=== PATIENT | female | born 1950 | race African-American/Black ===

== ENCOUNTER 2017-12-16 14:29 | Emergency (ER) | payer OTHER ==
--- NOTE | 2017-12-16 15:04 | ER ---
Nurse's Notes [facility] Name: Jemal Velez Age: 67 yrs Sex: Female : 1950 Arrival Date: 12/16/2017 Time: 14:33 Bed 23 Private MD: Abe Morris Diagnosis: Rash and other nonspecific skin eruption Presentation: 12/16 14:46 Presenting complaint: Patient states: "I have had shingles before and I think I have lk1 them again. I was in the hospital on the of last month and they put stickers on me. It started after that.". Transition of care: patient was not received from another setting of care. Onset of symptoms was November 30, 2017. Care prior to arrival: None. 14:46 Method Of Arrival: Ambulatory lk1 14:46 Acuity: JEFF 4 lk1 Triage Assessment: 14:48 General: Appears in no apparent distress. Behavior is calm, cooperative, appropriate lk1 for age. Pain: Denies pain. Historical: - Allergies: 14:48 Codeine; lk1 - PMHx: 14:48 Hypertension; shingles; lk1 - PSHx: 14:48 Hysterectomy; lk1 - Immunization history:: Adult Immunizations up to date. - Social history:: Smoking status: Patient uses tobacco products, denies chronic smoking, but will smoke occasionally. Screenin:00 Abuse screen: Denies threats or abuse. Nutritional screening: No deficits noted. tl3 Tuberculosis screening: No symptoms or risk factors identified. Fall Risk None identified. Assessment: 15:00 General: Appears uncomfortable, well groomed, well developed, well nourished, Behavior tl3 is calm, cooperative, appropriate for age. Pain: Complains of pain in chest, derm related Pain currently is 9 out of 10 on a pain scale. Neuro: Level of Consciousness is awake, alert, obeys commands, Oriented to person, place, time, situation, Appropriate for age. Cardiovascular: Heart tones S1 S2 present. Respiratory: Airway is patent Trachea midline Respiratory effort is even, unlabored, Breath sounds are clear bilaterally. GI: No signs and/or symptoms were reported involving the gastrointestinal system. : No signs and/or symptoms were reported regarding the genitourinary system. EENT: No signs and/or symptoms were reported regarding the EENT system. Derm: Rash noted that is itchy, painful. Musculoskeletal: No signs and/or symptoms reported regarding the musculoskeletal system. Vital Signs: 14:48 BP 217 / 96; Pulse 55; Resp 16; Temp 97.9(O); Pulse Ox 99% on R/A; Weight 116.12 kg lk1 (R); Height 5 ft. 3 in. (160.02 cm) (R); Pain 0/10; 14:48 Body Mass Index 45.35 (116.12 kg, 160.02 cm) lk1 ED Course: 14:33 Patient arrived in ED. mr 14:34 Abe Morris MD is Private Physician. mr 14:47 Triage completed. lk1 14:50 Arm band placed on right wrist. lk1 14:57 [facility]. snw 14:57 Shar Cisneros MD is Attending Physician. snw 15:00 No apparent distress. tl3 15:00 Patient has correct armband on for positive identification. Bed in low position. Call tl3 light in reach. 15:00 No provider procedures requiring assistance completed. Patient did not have IV access tl3 during this emergency room visit. 15:03 Abe Morris MD is Referral Physician. snw 15:05 Tyra Ely, JOSUÉ is Primary Nurse. tl3 Administered Medications: 15:15 Drug: fentaNYL (PF) 75 mcg Route: IM; Site: right gluteus; tl3 16:01 Follow up: Response: No adverse reaction; Pain is decreased tl3 15:36 Drug: Silvadene Cream 1 % 1 application Route: Topical; Site: affected area; tl3 16:01 Follow up: Response: No adverse reaction tl3 15:37 Drug: cloNIDine 0.1 mg Route: PO; tl3 16:01 Follow up: Response: No adverse reaction; Blood pressure is lowered tl3 Outcome: 15:03 Discharge ordered by . snw 16:00 Patient left the ED. tl3 16:01 Discharged to home ambulatory. tl3 16:01 Condition: good 16:01 Discharge instructions given to patient, family, Instructed on discharge instructions, follow up and referral plans. medication usage, Demonstrated understanding of instructions, follow-up care, medications, Prescriptions given X 2. Signatures: Bobbi Bonner FNP-C FNP-Csnw Jessica Pruett mr Carmen Weiss, RN RN lk1 Tyra Ely, RN RN tl3
--- NOTE | 2017-12-16 15:04 | EDPHYS ---
Physician Documentation [facility] Name: Jemal Velez Age: 67 yrs Sex: Female : 1950 Arrival Date: 12/16/2017 Time: 14:33 Bed 23 Private MD: Abe Morris ED Physician Shar Cisneros HPI: 12/16 15:08 This 67 yrs old Black Female presents to ER via Ambulatory with complaints of Shingles. snw 15:08 Onset: The symptoms/episode began/occurred suddenly, 1 week(s) ago, and became snw persistent. Associated signs and symptoms: Pertinent positives: itching, burning, tender. Modifying factors: the patient symptoms are aggravated by scratching. The patient has experienced a previous episode. appt with PCP on 12/24/17. Historical: - Allergies: 14:48 Codeine; lk1 - PMHx: 14:48 Hypertension; shingles; lk1 - PSHx: 14:48 Hysterectomy; lk1 - Immunization history:: Adult Immunizations up to date. - Social history:: Smoking status: Patient uses tobacco products, denies chronic smoking, but will smoke occasionally. ROS: 15:07 Constitutional: Negative for fever, chills, and weight loss, Eyes: Negative for injury, snw pain, redness, and discharge, ENT: Negative for injury, pain, and discharge, Neck: Negative for injury, pain, and swelling, Cardiovascular: Negative for chest pain, palpitations, and edema, Respiratory: Negative for shortness of breath, cough, wheezing, and pleuritic chest pain, Abdomen/GI: Negative for abdominal pain, nausea, vomiting, diarrhea, and constipation, Back: Negative for injury and pain, : Negative for injury, bleeding, discharge, and swelling, MS/Extremity: Negative for injury and deformity, Neuro: Negative for headache, weakness, numbness, tingling, and seizure. 15:07 Skin: Positive for rash, itching, burning, tender. Exam: 15:05 Constitutional: This is a well developed, well nourished patient who is awake, alert, snw and in no acute distress. Head/Face: Normocephalic, atraumatic. Eyes: Pupils equal round and reactive to light, extra-ocular motions intact. Lids and lashes normal. Conjunctiva and sclera are non-icteric and not injected. Cornea within normal limits. Periorbital areas with no swelling, redness, or edema. ENT: Nares patent. No nasal discharge, no septal abnormalities noted. Tympanic membranes are normal and external auditory canals are clear. Oropharynx with no redness, swelling, or masses, exudates, or evidence of obstruction, uvula midline. Mucous membranes moist. Neck: Trachea midline, no thyromegaly or masses palpated, and no cervical lymphadenopathy. Supple, full range of motion without nuchal rigidity, or vertebral point tenderness. No Meningismus. Chest/axilla: Normal chest wall appearance and motion. Nontender with no deformity. No lesions are appreciated. Cardiovascular: Regular rate and rhythm with a normal S1 and S2. No gallops, + (stable) murmurs, no rubs. Normal PMI, no JVD. No pulse deficits. Respiratory: Lungs have equal breath sounds bilaterally, clear to auscultation and percussion. No rales, rhonchi or wheezes noted. No increased work of breathing, no retractions or nasal flaring. Abdomen/GI: Soft, non-tender, with normal bowel sounds. No distension or tympany. No guarding or rebound. No evidence of tenderness throughout. Back: No spinal tenderness. No costovertebral tenderness. Full range of motion. MS/ Extremity: Pulses equal, no cyanosis. Neurovascular intact. Full, normal range of motion. Neuro: Awake and alert, GCS 15, oriented to person, place, time, and situation. Cranial nerves II-XII grossly intact. Motor strength 5/5 in all extremities. Sensory grossly intact. Cerebellar exam normal. Normal gait. Psych: Awake, alert, with orientation to person, place and time. Behavior, mood, and affect are within normal limits. 15:05 Skin: Appearance: normal except for affected area, rash can be described as erythematous, peeling, irritated skin, appears more burn like to central chest and under bilateral breasts. Vital Signs: 14:48 BP 217 / 96; Pulse 55; Resp 16; Temp 97.9(O); Pulse Ox 99% on R/A; Weight 116.12 kg lk1 (R); Height 5 ft. 3 in. (160.02 cm) (R); Pain 0/10; 14:48 Body Mass Index 45.35 (116.12 kg, 160.02 cm) lk1 MDM: 14:57 Patient medically screened. snw 15:07 Data reviewed: vital signs, nurses notes. Data interpreted: Pulse oximetry: on room air snw is 99 %. Interpretation: normal. Counseling: I had a detailed discussion with the patient and/or guardian regarding: the historical points, exam findings, and any diagnostic results supporting the discharge/admit diagnosis, the presence of at least one elevated blood pressure reading (>120/80) during this emergency department visit, the need for outpatient follow up, to return to the emergency department if symptoms worsen or persist or if there are any questions or concerns that arise at home. Special discussion: I have referred the patient to see his PCP for further evaluation of high blood pressure. Based on the history and exam findings, there is no indication for further emergent testing or inpatient evaluation. I discussed with the patient/guardian the need to see the primary care provider for further evaluation of the symptoms. Administered Medications: 15:15 Drug: fentaNYL (PF) 75 mcg Route: IM; Site: right gluteus; tl3 16:01 Follow up: Response: No adverse reaction; Pain is decreased tl3 15:36 Drug: Silvadene Cream 1 % 1 application Route: Topical; Site: affected area; tl3 16:01 Follow up: Response: No adverse reaction tl3 15:37 Drug: cloNIDine 0.1 mg Route: PO; tl3 16:01 Follow up: Response: No adverse reaction; Blood pressure is lowered tl3 Disposition: 12/17 07:31 Co-signature as Attending Physician, Shar Cisneros MD I agree with the assessment and chris plan of care. Disposition: 12/16/17 15:03 Discharged to Home. Impression: Rash and other nonspecific skin eruption. - Condition is Stable. - Discharge Instructions: Hypertension, Rash. - Prescriptions for Silvadene 1 % Topical Cream - Apply to affected area 1 application by TOPICAL route every 12 hours; 50 gram. cetirizine 1 mg/mL Oral Solution - take 5 milliliter by ORAL route once daily; 105 milliliter. - Medication Reconciliation Form, Thank You Letter, Antibiotic Education, Prescription Opioid Use form. - Follow up: Abe Morris MD; When: 1 week; Reason: Recheck today's complaints, Continuance of care, Re-evaluation by your physician. Follow up: Emergency Department; When: As needed; Reason: Worsening of condition. Signatures: Shar Cisneros MD MD cha Therrien, Shelly, HUNTER-C TIE SAWYER-Carmen Quintanilla, RN RN lk1 Tyra Ely RN RN tl3
[2017-12-16] MEDS ORDERED: FENTANYL CITR 100 MCG/2 ML ONE (15:32)
[2017-12-16] MEDS ORDERED: SILVER SULFADIAZINE 1% 25 GM TOP ONE (15:32)
[2017-12-16] MEDS ORDERED: cloNIDine HCl 0.1 MG TAB ONE (15:32)
== END 2017-12-16 16:00 | disposition home or self-care (01) ==
LOC: ER 14:29
DX: R21 Rash and other nonspecific skin eruption (principal); I10 Essential (primary) hypertension; Z88.5 Allergy status to narcotic agent; Z72.0 Tobacco use
CPT/HCPCS: 96372; 99283; J3010

== ENCOUNTER 2020-11-15 13:44 | Emergency (ER) | payer OTHER ==
--- OUTSIDE RECORDS SUMMARY | 2020-11-15 13:46 | XMS REPORT | Continuity of Care Document ---
:1950 Author Organization [facility] t Address [facility] [place] [address] Care Team Providers Name Role Phone Rausch Attending Clinician Problems This patient has no known problems. Allergies, Adverse Reactions, Alerts This patient has no known allergies or adverse reactions. Medications This patient has no known medications. Procedures This patient has no known procedures. Encounters Start End Encounter Admission Attending Care Care Encounter Source Date/Time Date/Time Type Type Clinicians Facility Department ID 2020-08-17 2020-08-17 Emergency Singer [facility] [id number] 10:45:00 11:12:00 Michael Delcid [id number] [place] [id number] [place] [id number] Results This patient has no known results.
[2020-11-15 14:25] LABS: Absolute Lymphocytes (CBC) 2.6 K/uL (0.7-4.9); Hematocrit 44.7 % (36.0-45.0); Lymphocytes % 24.1 % (15.3-44.8); MPV 9.8 fL (7.6-11.3); RBC Red Blood Cell Count 5.25 M/uL (3.86-4.86)
[2020-11-15] MEDS ORDERED: MAGNES/ALUMIN/SIMET 30ML UCUP ONE (14:29)
[2020-11-15] MEDS ORDERED: ASPIRIN 81 MG CHEWABLE TABLET ONE (14:29)
[2020-11-15] MEDS ORDERED: ONDANSETRON 4 MG/2 ML VIAL ONE (14:29)
[2020-11-15] MEDS ORDERED: FENTANYL CITR 100 MCG/2 ML ONE (14:29)
[2020-11-15] MEDS ORDERED: LIDOCAINE VISCOUS 2% SOLN 15 ML UDC ONE (14:30)
--- NOTE | 2020-11-15 14:42 | RAD REPORT ---
EXAM DESCRIPTION: RAD - Chest Single View - 11/15/2020 2:36 pm CLINICAL HISTORY: CHEST PAIN Chest pain. COMPARISON: Chest Single View dated 11/29/2017 FINDINGS: Portable technique limits examination quality. The lungs are grossly clear. The heart is normal in size. No displaced fractures. IMPRESSION: No acute intrathoracic process suspected.
[2020-11-15 15:09] LABS: ALT/SGPT 18 U/L (12-78); AST/SGOT 16 U/L (15-37); Albumin 3.9 g/dL (3.4-5.0); Alkaline Phosphatase 116 U/L (45-117); BUN Blood Urea Nitrogen 21 mg/dL (7-18); Bicarbonate 24 mmol/L (21-32); Bilirubin Direct 0.2 mg/dL (0-0.2); Bilirubin Total 0.9 mg/dL (0.2-1.0); Glucose Level 111 mg/dL (74-106); Magnesium 2.7 mg/dL (1.8-2.4); NT PRO-BNP 891 pg/mL (<125); Potassium 4.5 mmol/L (3.5-5.1); Protein, Total 8.4 g/dL (6.4-8.2); Sodium Level 136 mmol/L (136-145); Troponin (Emerg Dept Use Only) < 0.02 ng/mL (0.0-0.045)
--- NOTE | 2020-11-15 15:53 | RAD REPORT ---
EXAM DESCRIPTION: US - Abdomen Exam Limited - 11/15/2020 3:46 pm CLINICAL HISTORY: r/o gb;Abd pain Abdominal pain COMPARISON: No comparisons FINDINGS: The gallbladder demonstrates no gallstones. No pericholecystic fluid or gallbladder wall t hickening. The common bile duct is normal measuring 4 mm. The liver demonstrates no findings of intrahepatic biliary dilatation. IMPRESSION: Unremarkable examination.
--- NOTE | 2020-11-15 15:58 | EDPHYS ---
Physician Documentation [facility] Name: Jemal Velez Age: 70 yrs Sex: Female : 1950 Arrival Date: 11/15/2020 Time: 13:45 Bed 8 Private MD: Abe Morris ED Physician Gio Ruvalcaba HPI: 11/15 15:53 This 70 yrs old Black Female presents to ER via Wheelchair with complaints of jr8 epigastric pain. 15:54 The patient presents with abdominal pain in the epigastric area. Onset: The jr8 symptoms/episode began/occurred acutely, 3 day(s) ago, and became worse. The symptoms do not radiate. Associated signs and symptoms: Pertinent positives: nausea and vomiting. The symptoms are described as stabbing. Modifying factors: The symptoms are alleviated by nothing, the symptoms are aggravated by nothing. Severity of pain: At its worst the pain was moderate in the emergency department the pain is unchanged. The patient has not experienced similar symptoms in the past. The patient has not recently seen a physician. Historical: - Allergies: 14:01 Codeine; hb - Home Meds: 14:01 amlodipine 5 mg tab 1 tab once daily [Active]; allopurinol 100 mg Oral tab 1 tab once hb daily [Active]; spironolactone 25 mg Oral tab 2 tabs once daily [Active]; rosuvastatin 10 mg oral tab 1 tab once daily [Active]; - PMHx: 14:01 Hypertension; shingles; hb - PSHx: 14:01 Hysterectomy; hb - Immunization history:: Adult Immunizations up to date. - Social history:: Smoking status: Patient reports the use of cigarette tobacco products, denies chronic smoking, but will smoke occasionally. ROS: 15:54 Eyes: Negative for injury, pain, redness, and discharge, ENT: Negative for injury, jr8 pain, and discharge, Neck: Negative for injury, pain, and swelling, Cardiovascular: Negative for chest pain, palpitations, and edema, Respiratory: Negative for shortness of breath, cough, wheezing, and pleuritic chest pain, Back: Negative for injury and pain, MS/Extremity: Negative for injury and deformity, Skin: Negative for injury, rash, and discoloration, Neuro: Negative for headache, weakness, numbness, tingling, and seizure. 15:54 Abdomen/GI: Positive for abdominal pain, nausea and vomiting, Negative for diarrhea, constipation, abdominal cramps, abdominal distension, hematemesis, black/tarry stool, rectal pain, rectal bleeding, bowel incontinence. Exam: 15:54 Eyes: Pupils equal round and reactive to light, extra-ocular motions intact. Lids and jr8 lashes normal. Conjunctiva and sclera are non-icteric and not injected. Cornea within normal limits. Periorbital areas with no swelling, redness, or edema. ENT: Nares patent. No nasal discharge, no septal abnormalities noted. Tympanic membranes are normal and external auditory canals are clear. Oropharynx with no redness, swelling, or masses, exudates, or evidence of obstruction, uvula midline. Mucous membranes moist. Neck: Trachea midline, no thyromegaly or masses palpated, and no cervical lymphadenopathy. Supple, full range of motion without nuchal rigidity, or vertebral point tenderness. No Meningismus. Cardiovascular: Regular rate and rhythm with a normal S1 and S2. No gallops, murmurs, or rubs. Normal PMI, no JVD. No pulse deficits. Respiratory: Lungs have equal breath sounds bilaterally, clear to auscultation and percussion. No rales, rhonchi or wheezes noted. No increased work of breathing, no retractions or nasal flaring. Back: No spinal tenderness. No costovertebral tenderness. Full range of motion. Skin: Warm, dry with normal turgor. Normal color with no rashes, no lesions, and no evidence of cellulitis. MS/ Extremity: Pulses equal, no cyanosis. Neurovascular intact. Full, normal range of motion. Neuro: Awake and alert, GCS 15, oriented to person, place, time, and situation. Cranial nerves II-XII grossly intact. Motor strength 5/5 in all extremities. Sensory grossly intact. Cerebellar exam normal. Normal gait. 15:54 Abdomen/GI: Inspection: obese Bowel sounds: active, all quadrants, Palpation: soft, in all quadrants, mild abdominal tenderness, in the epigastric area and right upper quadrant, mass, is not appreciated, rebound tenderness, is not appreciated, voluntary guarding, is not appreciated, involuntary guarding, is not appreciated, no appreciated organomegaly, Indicators: McBurney's point is not tender, Prasad's sign is negative, Rovsing's sign is negative, Liver: tenderness, is not appreciated. Vital Signs: 13:58 BP 153 / 75; Pulse 61; Resp 16; Temp 97.3; Pulse Ox 100% on R/A; Weight 104.33 kg; hb Height 5 ft. 3 in. (160.02 cm); Pain 8/10; 15:04 BP 162 / 69; Pulse 47; Resp 18; Pulse Ox 99% on R/A; ph 13:58 Body Mass Index 40.74 (104.33 kg, 160.02 cm) hb MDM: 14:01 Patient medically screened. jr8 15:55 Data reviewed: vital signs, nurses notes, lab test result(s), EKG, radiologic studies, jr8 plain films, and as a result, I will discharge patient. Data interpreted: Pulse oximetry: on room air is 99 %. Interpretation: normal. Counseling: I had a detailed discussion with the patient and/or guardian regarding: the historical points, exam findings, and any diagnostic results supporting the discharge/admit diagnosis, lab results, radiology results, the need for outpatient follow up, a family practitioner, a supervisor ski production, to return to the emergency department if symptoms worsen or persist or if there are any questions or concerns that arise at home. Response to treatment: the patient's symptoms have markedly improved after treatment. 11/15 14:02 Order name: Basic Metabolic Panel 8 11/15 14:02 Order name: CBC with Diff jr8 11/15 14:02 Order name: LFT's; Complete Time: 15:13 8 11/15 14:02 Order name: Magnesium; Complete Time: 15:13 jr8 11/15 14:02 Order name: NT PRO-BNP; Complete Time: 15:13 jr8 11/15 14:02 Order name: PT-INR; Complete Time: 14:57 8 11/15 14:02 Order name: Troponin (emerg Dept Use Only); Complete Time: 15:13 jr8 11/15 14:02 Order name: XRAY Chest (1 view); Complete Time: 14:52 jr8 11/15 14:04 Order name: Basic Metabolic Panel; Complete Time: 15:13 EDMS 11/15 14:04 Order name: CBC with Automated Diff; Complete Time: 14:52 EDMS 11/15 14:08 Order name: Lipase; Complete Time: 14:36 11/15 15:13 Order name: US Abdomen Limited; Complete Time: 15:55 11/15 14:02 Order name: EKG; Complete Time: 14:04 11/15 14:02 Order name: Cardiac monitoring; Complete Time: 14:02 11/15 14:02 Order name: EKG - Nurse/Tech; Complete Time: 14:02 11/15 14:02 Order name: IV Saline Lock; Complete Time: 14:12 11/15 14:02 Order name: Labs collected and sent; Complete Time: 14:12 11/15 14:02 Order name: O2 Per Protocol; Complete Time: 14:02 11/15 14:02 Order name: O2 Sat Monitoring; Complete Time: 14:02 Administered Medications: 14:16 Drug: GI Cocktail without - (Maalox Suspension 30 ml, Lidocaine Liquid 2 % 15 ss ml) Route: PO; 14:52 Follow up: Response: No adverse reaction ss 14:17 Drug: fentaNYL (PF) 25 mcg Route: IVP; Site: left antecubital; hb 14:52 Follow up: Response: No adverse reaction; Pain is decreased ss 14:21 Drug: Zofran (Ondansetron) 4 mg Route: IVP; Site: left antecubital; hb 14:52 Follow up: Response: No adverse reaction; Nausea is decreased ss 14:22 Drug: Aspirin Chewable Tablet 324 mg Route: PO; hb 14:52 Follow up: Response: No adverse reaction ss Disposition: 22:16 Co-signature as Attending Physician, Gio Ruvalcaba MD I agree with the assessment and kdr plan of care. Disposition: 11/15/20 15:56 Discharged to Home. Impression: Gastritis, unspecified, Upper abdominal pain, unspecified. - Condition is Stable. - Discharge Instructions: Gastritis, Adult. - Prescriptions for Protonix 40 mg Oral Tablet - take 1 tablet by ORAL route once daily; 30 tablet. - Medication Reconciliation Form, Thank You Letter, Antibiotic Education, Prescription Opioid Use form. - Follow up: Jeremy Wu MD; When: 5 - 6 days; Reason: Recheck today's complaints, Continuance of care, Re-evaluation by your physician. - Problem is new. - Symptoms have improved. Signatures: Dispatcher [employer] EDMS Gio Ruvalcaba MD MD [facility] Beatrice Becker RN RN Kolton Morillo PA PA jr8 Caterina Mayorga, JOSUÉ RN Corrections: (The following items were deleted from the chart) 15:56 15:54 Onset: The symptoms/episode began/occurred acutely, today, jr8 jr8 15:56 15:56 11/15/2020 15:56 Discharged to Home. Impression: Gastritis, unspecified. jr8 Condition is Stable. Forms are Medication Reconciliation Form, Thank You Letter, Antibiotic Education, Prescription Opioid Use. Follow up: Jeremy Wu; When: 5 - 6 days; Reason: Recheck today's complaints, Continuance of care, Re-evaluation by your physician. Problem is new. Symptoms have improved. jr8 16:15 15:56 11/15/2020 15:56 Discharged to Home. Impression: Gastritis, unspecified; Upper ss abdominal pain, unspecified. Condition is Stable. Discharge Instructions: Gastritis, Adult. Prescriptions for Protonix 40 mg Oral Tablet - take 1 tablet by ORAL route once daily; 30 tablet. and Forms are Medication Reconciliation Form, Thank You Letter, Antibiotic Education, Prescription Opioid Use. Follow up: Jeremy Wu; When: 5 - 6 days; Reason: Recheck today's complaints, Continuance of care, Re-evaluation by your physician. Problem is new. Symptoms have improved. jr8
--- NOTE | 2020-11-15 15:58 | ER ---
Nurse's Notes [facility] Name: Jemal Velez Age: 70 yrs Sex: Female : 1950 Arrival Date: 11/15/2020 Time: 13:45 Bed 8 Private MD: Abe Morris Diagnosis: Gastritis, unspecified;Upper abdominal pain, unspecified Presentation: 11/15 13:58 Chief complaint: Epigastric pain x 3 days. Coronavirus screen: At this time, the client hb does not indicate any symptoms associated with coronavirus-19. Ebola Screen: No symptoms or risks identified at this time. Initial Sepsis Screen: Does the patient meet any 2 criteria? No. Patient's initial sepsis screen is negative. Does the patient have a suspected source of infection? No. Patient's initial sepsis screen is negative. Risk Assessment: Do you want to hurt yourself or someone else? Patient reports no desire to harm self or others. Onset of symptoms was November 12, 2020. 13:58 Method Of Arrival: Wheelchair hb 13:58 Acuity: JEFF 3 hb Historical: - Allergies: 14:01 Codeine; hb - Home Meds: 14:01 amlodipine 5 mg tab 1 tab once daily [Active]; allopurinol 100 mg Oral tab 1 tab once hb daily [Active]; spironolactone 25 mg Oral tab 2 tabs once daily [Active]; rosuvastatin 10 mg oral tab 1 tab once daily [Active]; - PMHx: 14:01 Hypertension; shingles; hb - PSHx: 14:01 Hysterectomy; hb - Immunization history:: Adult Immunizations up to date. - Social history:: Smoking status: Patient reports the use of cigarette tobacco products, denies chronic smoking, but will smoke occasionally. Screenin:01 Abuse screen: Denies threats or abuse. Denies injuries from another. Nutritional hb screening: No deficits noted. Tuberculosis screening: No symptoms or risk factors identified. Fall Risk None identified. Assessment: 14:00 General: Appears distressed, uncomfortable, Behavior is cooperative, anxious, Denies ss fever, fatigue, chills. Pain: Complains of pain in epigastric area Pain does not radiate. Pain currently is 10 out of 10 on a pain scale. Quality of pain is described as pressure, Pain began 2-3 days ago. Is continuous. Neuro: Level of Consciousness is awake, alert, obeys commands, Oriented to person, place, time, situation, Marbleizing Machine Tender are equal bilaterally Speech is normal, Facial symmetry appears normal, Pupils are PERRLA. Cardiovascular: Capillary refill < 3 seconds is brisk in bilateral fingers Patient's skin is warm and dry. Cardiovascular: Rhythm is sinus bradycardia. Respiratory: Airway is patent Respiratory effort is even, unlabored, Respiratory pattern is regular, symmetrical. GI: Reports nausea, Patient currently denies diarrhea, vomiting. : No signs and/or symptoms were reported regarding the genitourinary system. EENT: Oral mucosa is moist. Derm: Skin is intact, is healthy with good turgor, Skin is dry, Skin is pink, warm \T\ dry. normal. Musculoskeletal: Circulation, motion, and sensation intact. Range of motion: intact in all extremities, Swelling absent. 14:52 Reassessment: Patient appears in no apparent distress at this time. Patient and/or ss family updated on plan of care and expected duration. Pain level reassessed. Patient is alert, oriented x 3, equal unlabored respirations, skin warm/dry/pink. Patient denies pain at this time. Patient states feeling better. Patient states symptoms have improved. 15:38 Reassessment: Pt in US at this time. Vital Signs: 13:58 BP 153 / 75; Pulse 61; Resp 16; Temp 97.3; Pulse Ox 100% on R/A; Weight 104.33 kg; hb Height 5 ft. 3 in. (160.02 cm); Pain 8/10; 15:04 BP 162 / 69; Pulse 47; Resp 18; Pulse Ox 99% on R/A; ph 13:58 Body Mass Index 40.74 (104.33 kg, 160.02 cm) ED Course: 13:45 Patient arrived in ED. am2 13:45 Abe Morris MD is Private Physician. am2 13:59 Triage completed. hb 14:01 Kolton Morillo PA is PHCP. jr8 14:01 Gio Ruvalcaba MD is Attending Physician. jr8 14:01 Arm band placed on. hb 14:01 Patient has correct armband on for positive identification. Placed in gown. Bed in low hb position. Call light in reach. Side rails up X 1. laboratory monitor on. Pulse ox on. NIBP on. 14:01 Patient maintains SpO2 saturation greater than 95% on room air. hb 14:10 Inserted saline lock: 20 gauge in right antecubital area, using aseptic technique. ss Blood collected. 14:11 Beatrice Becker, RN is Primary Nurse. ss 14:36 XRAY Chest (1 view) In Process Unspecified. EDMS 15:46 US Abdomen Limited In Process Unspecified. EDMS 15:56 Jeremy Wu MD is Referral Physician. jr8 16:15 No provider procedures requiring assistance completed. IV discontinued, intact, ss bleeding controlled, No redness/swelling at site. Pressure dressing applied. Administered Medications: 14:16 Drug: GI Cocktail without - (Maalox Suspension 30 ml, Lidocaine Liquid 2 % 15 ss ml) Route: PO; 14:52 Follow up: Response: No adverse reaction ss 14:17 Drug: fentaNYL (PF) 25 mcg Route: IVP; Site: left antecubital; hb 14:52 Follow up: Response: No adverse reaction; Pain is decreased ss 14:21 Drug: Zofran (Ondansetron) 4 mg Route: IVP; Site: left antecubital; hb 14:52 Follow up: Response: No adverse reaction; Nausea is decreased ss 14:22 Drug: Aspirin Chewable Tablet 324 mg Route: PO; hb 14:52 Follow up: Response: No adverse reaction ss Outcome: 15:56 Discharge ordered by . jr8 16:15 Discharged to home via wheelchair, with family. ss 16:15 Condition: improved 16:15 Discharge instructions given to patient, Instructed on discharge instructions, follow up and referral plans. medication usage, Demonstrated understanding of instructions, follow-up care, Prescriptions given X 1. 16:15 Patient left the ED. Signatures: Dispatcher [employer] EDCT Beatrice Becker RN RN Kolton Morillo PA PA jr8 Genevieve Matthew RN RN Caterina Mayorga RN RN Tia Oliveira am2
[2020-11-15 17:09] VITALS: TEMP 97.3
[2020-11-15 17:10] VITALS: BP 162/69; O2SAT 99
== END 2020-11-15 16:15 | disposition home or self-care (01) ==
LOC: ER 13:44
DX: K29.70 Gastritis, unspecified, without bleeding (principal); F17.210 Nicotine dependence, cigarettes, uncomplicated; I10 Essential (primary) hypertension
CPT/HCPCS: 93005; 85025; 80048; 36415; 83735; 85610; 80076; 84484; 83690; 83880; 71045; 76705; 96375; 96374; 99285; J3010; J2405

== ENCOUNTER 2021-06-28 15:46 | Emergency (ER) | payer OTHER ==
--- NOTE | 2021-06-28 16:22 | RAD REPORT ---
EXAM DESCRIPTION: CT - Ct Stroke Brain Wo Cont - 06/28/2021 4:16 pm CLINICAL HISTORY: VISUAL DISTURBANCES COMPARISON: Head Brain Wo Cont dated 11/29/2017 TECHNIQUE: All CT scans are performed using dose optimization technique as appropriate and may inclu de automated exposure control or mA/KV adjustment according to patient size. FINDINGS: No intracranial hemorrhage, hydrocephalus or extra-axial fluid collection.No areas of brai n edema or evidence of midline shift. Mild chronic small vessel ischemic changes The paranasal sinuses and mastoids are clear. The calvarium is intact. IMPRESSION: No acute intracranial abnormality.
[2021-06-28 16:39] LABS: Absolute Lymphocytes (CBC) 4.1 K/uL (0.7-4.9); Basophils % 0.7 % (0-1.3); Hematocrit 42.4 % (36.0-45.0); Lymphocytes % 29.7 % (15.3-44.8); MPV 9.2 fL (7.6-11.3); RBC Red Blood Cell Count 4.85 M/uL (3.86-4.86)
[2021-06-28 16:40] LABS: Protime INR 1.03
[2021-06-28 16:47] LABS: Potassium 3.4 mmol/L (3.5-5.1)
[2021-06-28] MEDS ORDERED: ONDANSETRON 4 MG/2 ML VIAL ONE (16:56)
[2021-06-28] MEDS ORDERED: PROMETHAZINE INJ 25 MG/ML AMP ONE (17:03)
--- NOTE | 2021-06-28 17:03 | RAD REPORT ---
EXAM DESCRIPTION: RAD - Chest Single View - 06/28/2021 4:57 pm CLINICAL HISTORY: stroke work-up COMPARISON: Chest Single View dated 11/15/2020; Chest Single View dated 11/29/2017; Chest Abd Pelvis Wo Con dated 06/28/2021 FINDINGS: Lines: None. Lungs: Diffuse prominence of the pulmonary interstitium. Pleural: No significant pleural effusions or pneumothorax. Cardiac: Mild cardiomegaly. Bones: No acute fractures. Other: IMPRESSION: Vascular congestion is present.
[2021-06-28] MEDS ORDERED: MORPHINE 2 MG/ML SYR ONE ×2 (17:04→17:06)
--- NOTE | 2021-06-28 17:07 | RAD REPORT ---
EXAM DESCRIPTION: CTChest Abd Pelvis Wo Con - 06/28/2021 4:59 pm CLINICAL HISTORY: SOB COMPARISON: No comparisons TECHNIQUE: CT of the chest, abdomen, and pelvis was performed. All CT scans are performed using dose optimization technique as appropriate and may include automated exposure control or mA/KV adjustment according to patient size. FINDINGS: Thorax: Chest Wall: No axillary lymphadenopathy. No masses are seen. Lungs: No acute abnormality.Limited by motion. No suspicious pulmonary nodules, consolidation, or daniel eolar edema identified. Pleura: No effusions or pneumothorax. Megan/Mediastinum: No lymphadenopathy. Aorta/Pulmonary Arteries: Unremarkable Heart: Normal size. Multi-vessel coronary artery disease. Abdomen/Pelvis: Liver: No acute abnormality or suspicious lesions. Biliary: No biliary ductal dilatation. Stomach: Small hiatal hernia. Stomach is otherwise unremarkable. Duodenum: No significant focal abnormality. Pancreas: No significant abnormality. Spleen: No significant abnormality. Adrenal: Bilateral adrenal thickening. No discrete mass. Kidney/ureter: No hydronephrosis. No renal calculi. Retroperitoneum: No retroperitoneal adenopathy. Vascular: Aortic atherosclerosis. Bowel: No significant focal abnormality. Peritoneum: Fat containing inguinal hernias. Bladder: Hysterectomy. Reproductive: No adnexal masses. Bones: No acute fracture. Other: n/a IMPRESSION: No acute findings within the chest, abdomen, or pelvis. Incidental findings as noted abo ve.
[2021-06-28 17:50] LABS: Arterial Blood Carboxyhemoglob 2.2 % (0-1.5); Blood Gas Oxyhemoglobin 87.9 % (94-97); Blood O2 Saturation 90.8 % (92-98.5)
[2021-06-28 19:03] LABS: Barbiturates NEGATIVE (NEGATIVE); Benzodiazepines NEGATIVE (NEGATIVE); Cocaine NEGATIVE (NEGATIVE); METHAMPHETAM NEGATIVE (NEGATIVE); Methadone NEGATIVE (NEGATIVE); Opiates POSITIVE (NEGATIVE); Phencyclidine NEGATIVE (NEGATIVE); THC Cannibis NEGATIVE (NEGATIVE)
[2021-06-28] MEDS ORDERED: NALOXONE 0.4 MG/ML VIAL ONE (19:46)
--- NOTE | 2021-06-28 20:38 | RAD REPORT ---
EXAM DESCRIPTION: CT - Head angio - 06/28/2021 7:33 pm CLINICAL HISTORY: CONFUSED COMPARISON: <Comparisons> TECHNIQUE: CT angiography of the head was performed with MIPs. All CT scans are performed using dose optimization technique as appropriate and may include automated exposure control or mA/KV adjustment according to patient size. FINDINGS: Anterior circulation: No aneurysm or large vessel occlusion. Moderate to high-grade focal stenosis of the right M1 segment of the middle cerebral artery. Intracranial atherosclerosis. No arteriovenous malformation identified . Posterior circulation: Multifocal occlusions involving the bilateral vertebral arteries and proximal basilar. The basilar do es reconstitute distally which may be due to collateral flow from the [place]. The right verteb ral artery is dominant. 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 Moderate to high-grade focal stenosis of the right M1 segment of the middle cerebral artery.
--- NOTE | 2021-06-28 20:52 | RAD REPORT ---
EXAM DESCRIPTION: CT - Neck Angio - 06/28/2021 7:33 pm CLINICAL HISTORY: AMS COMPARISON: Ct Stroke Brain Wo Cont dated 06/28/2021; Head Brain Wo Cont dated 11/29/2017No compariso ns TECHNIQUE: CT angiography of the neck vessels was performed with MIPs. All CT scans are performed using dose optimization technique as appropriate and may include automated exposure control or mA/KV adjustment according to patient size. FINDINGS: A left aortic arch is identified with normal three vessel configuration of the great vesse ls. No significant flow abnormality is seen of the common carotid bilaterally. A moderate stenosis is present of the left ICA at the carotid bulb secondary to primarily noncalcifie d plaque. The right ICA is widely patent. Diminutive left vertebral artery which likely has a focal occlusion versus critical stenosis proximal ly and other multifocal stenoses along its course. The right vertebral artery is patent Enteric tube noted. IMPRESSION: 1. Diminutive left vertebral artery with multifocal stenoses and possibly short-segment occlusion. 2. Moderate stenosis at the left carotid bulb.
--- NOTE | 2021-06-28 21:10 | EDPHYS ---
Physician Documentation [facility] Name: Jemal Velez Age: 71 yrs Sex: Female : 1950 Arrival Date: 06/28/2021 Time: 15:52 Bed 6 Private MD: ED Physician Michael Rausch HPI: 06/28 16:17 This 71 yrs old Black Female presents to ER via EMS with complaints of Weakness right kdr upper extremity and visual disturbance. 16:17 The patient presents to the emergency department with weakness of the right upper kdr extremity, a vision problem, blurred vision. Onset: The symptoms/episode began/occurred suddenly, just prior to arrival. Context: occurred While getting blood drawn, occurred while the patient was. Associated signs and symptoms: Pertinent positives: blurred vision, loss of vision, weakness, Diaphoretic. Severity of symptoms: At their worst the symptoms were mild just prior to arrival, in the emergency department the symptoms are unchanged. Patient's baseline: Neuro: alert and fully oriented, Motor: no deficits, Speech: normal, The patient has a previous history of Hypertension. The patient has not experienced similar symptoms in the past. The patient has not recently seen a physician. This patient states that she did not have a history of syncope with blood draws. Historical: - Allergies: 16:06 Codeine; jd3 - Home Meds: 16:06 allopurinol 100 mg Oral tab 1 tab once daily [Active]; amlodipine 5 mg tab 1 tab once jd3 daily [Active]; rosuvastatin 10 mg Oral tab 1 tab once daily [Active]; spironolactone 25 mg Oral tab 2 tabs once daily [Active]; - PMHx: 16:06 Hypertension; shingles; jd3 - Immunization history:: Adult Immunizations unknown. - Social history:: Smoking status: unknown. ROS: 16:17 Constitutional: Negative for fever, chills, and weight loss, Eyes: Negative for injury, kdr pain, redness, and discharge, ENT: Negative for injury, pain, and discharge, Neck: Negative for injury, pain, and swelling, Cardiovascular: Negative for chest pain, palpitations, and edema, Respiratory: Negative for shortness of breath, cough, wheezing, and pleuritic chest pain, Abdomen/GI: Negative for abdominal pain, nausea, vomiting, diarrhea, and constipation, Back: Negative for injury and pain, : Negative for injury, bleeding, discharge, and swelling, MS/Extremity: Negative for injury and deformity, Skin: Negative for injury, rash, and discoloration, Psych: Negative for depression, anxiety, suicide ideation, homicidal ideation, and hallucinations, Allergy/Immunology: Negative for hives, rash, and allergies, Endocrine: Negative for neck swelling, polydipsia, polyuria, polyphagia, and marked weight changes, Hematologic/Lymphatic: Negative for swollen nodes, abnormal bleeding, and unusual bruising. 16:17 Neuro: Positive for near syncope, visual changes. Exam: 16:17 Constitutional: This is a well developed, well nourished patient who is awake, alert, kdr and in no acute distress. Head/Face: Normocephalic, atraumatic. Eyes: Pupils equal round and reactive to light, extra-ocular motions intact. Lids and lashes normal. Conjunctiva and sclera are non-icteric and not injected. Cornea within normal limits. Periorbital areas with no swelling, redness, or edema. Neck: Trachea midline, no thyromegaly or masses palpated, and no cervical lymphadenopathy. Supple, full range of motion without nuchal rigidity, or vertebral point tenderness. No Meningismus. Chest/axilla: Normal chest wall appearance and motion. Nontender with no deformity. No lesions are appreciated. Cardiovascular: Regular rate and rhythm with a normal S1 and S2. No gallops, murmurs, or rubs. Normal PMI, no JVD. No pulse deficits. Respiratory: Lungs have equal breath sounds bilaterally, clear to auscultation and percussion. No rales, rhonchi or wheezes noted. No increased work of breathing, no retractions or nasal flaring. Abdomen/GI: Soft, non-tender, with normal bowel sounds. No distension or tympany. No guarding or rebound. No evidence of tenderness throughout. Back: No spinal tenderness. No costovertebral tenderness. Full range of motion. Skin: Warm, dry with normal turgor. Normal color with no rashes, no lesions, and no evidence of cellulitis. MS/ Extremity: Pulses equal, no cyanosis. Neurovascular intact. Full, normal range of motion. Psych: Awake, alert, with orientation to person, place and time. Behavior, mood, and affect are within normal limits. Vital Signs: 16:07 Weight 107.5 kg (R); Height 5 ft. 3 in. (160.02 cm) (R); Pain 0/10; jd3 17:46 BP 164 / 84; Pulse 88; Resp 18; Temp 97.7; Pulse Ox 100% on R/A; tw5 18:45 BP 142 / 72; Pulse 89; Resp 18; Pulse Ox 99% on R/A; tw5 20:00 BP 154 / 57; Pulse 82; Resp 20; Pulse Ox 99% on R/A; Pain 0/10; wg 20:50 BP 137 / 72; Pulse 84; Resp 18; Pulse Ox 99% on R/A; wg 21:20 BP 120 / 96; Pulse 84; Resp 18; Pulse Ox 98% on R/A; wg 16:07 Body Mass Index 41.98 (107.50 kg, 160.02 cm) jd3 20:00 Moises (FACES) NIH Stroke Scale Scores: 16:16 NIHSS Score: 17 tw5 MDM: 21:07 Data reviewed: vital signs, nurses notes, lab test result(s), radiologic studies, and ps1 as a result, I will transfer patient for thrombectomy Dr. Chaparro fung. Counseling: I had a detailed discussion with the patient and/or guardian regarding: the historical points, exam findings, and any diagnostic results supporting the discharge/admit diagnosis, lab results, radiology results, the need to transfer to another facility, for higher level of care. 21:09 Patient medically screened. ps1 06/28 16:11 Order name: Basic Metabolic Panel; Complete Time: 18:21 jd3 06/28 16:11 Order name: CBC with Diff; Complete Time: 18:21 jd3 06/28 16:11 Order name: Protime (+inr); Complete Time: 18:21 jd3 06/28 16:11 Order name: Ptt, Activated; Complete Time: 18:21 jd3 06/28 16:23 Order name: Glucose, Ancillary Testing EDMS 06/28 17:20 Order name: UDS; Complete Time: 19:15 tw5 06/28 16:11 Order name: CT Stroke Brain w/o Contrast; Complete Time: 16:34 jd3 06/28 16:11 Order name: Stroke CXR 1 View; Complete Time: 18:21 jd3 06/28 17:20 Order name: AMMONIA; Complete Time: 19:15 tw5 06/28 17:20 Order name: ABG; Complete Time: 18:21 tw5 06/28 21:09 Order name: SARS-COV-2 RT PCR EDMS 06/28 16:11 Order name: EKG; Complete Time: 16:11 d3 06/28 16:11 Order name: Accucheck; Complete Time: 16:28 [facility] 06/28 16:11 Order name: Cardiac monitoring; Complete Time: 16:28 d3 06/28 16:11 Order name: EKG - Nurse/Tech; Complete Time: 16:22 d3 06/28 16:11 Order name: IV Saline Lock; Complete Time: 16:28 [facility] 06/28 16:11 Order name: Labs collected and sent; Complete Time: 16:28 [facility] 06/28 16:11 Order name: NPO; Complete Time: 16:28 [facility] 06/28 16:11 Order name: O2 Per Protocol; Complete Time: 16:28 [facility] 06/28 16:11 Order name: O2 Sat Monitoring; Complete Time: 16:28 [facility] 06/28 16:11 Order name: Stroke Swallow Screen; Complete Time: 16:28 [facility] 06/28 16:51 Order name: CT Chest Abdomen Pelvis W/O Contrast; Complete Time: 18:21 eb 06/28 19:02 Order name: CT Head Angio; Complete Time: 20:41 kdr 06/28 19:23 Order name: CT Neck Angio; Complete Time: 20:55 kdr Administered Medications: 16:34 Drug: Zofran (Ondansetron) 4 mg Route: IVP; Site: left antecubital; tw5 17:20 Follow up: Response: No adverse reaction tw5 16:46 Drug: morphine 4 mg Route: IVP; Site: left antecubital; tw5 17:40 Follow up: Response: RASS: Light sedation (-2) tw5 19:24 Drug: NARcan (naloxone) 0.2 mg Route: IVP; Infused Over: 2 mins; Site: left antecubital;wg 21:50 Follow up: Response: No adverse reaction Point of Care Testing: Blood Glucose: 16:12 Blood Glucose: 157 mg/dL; jd3 Ranges: Critical Glucose Levels:Adult <50 mg/dl or >400 mg/dl <40 mg/dl or >180 mg/dl Disposition Summary: 06/28/21 21:09 Transfer Ordered Transfer Location: [facility] ps1 Reason: Higher level of care ps1 Condition: Serious ps1 Problem: new ps1 Symptoms: are unchanged ps1 Accepting Physician: Chaparro(06/28/21 21:53) wg Diagnosis - Stroke. ps1 Forms: - Medication Reconciliation Form ps1 - SBAR form ps1 Critical care time excluding procedures: 21:08 Critical care time: Bedside Care: 20 minutes, Consultation: 20 minutes, Family ps1 Intervention: 15 minutes. Total time: 55 minutes NIH Stroke Scale - NIH Stroke Score Date: 06/28/2021 Time: 16:16 Total Score = 17 1a. Level of Consciousness (LOC) - 0(Alert) 1b. Level of Consciousness (LOC) (Month \T\ Age) - 0(Both) 1c. LOC Commands (Open \T\ Closes Eyes/Soda [employer] House Operator) - 0(Both) 2. Best Gaze (Lateral Gaze Paresis) - 0(Normal) 3. Visual Field Loss - 1(Partial hemianopia) 4. Facial Palsy - 1(Minor Paralysis) 5a. Left Arm: Motor (10-second hold) - 2(Drift, some effort against gravity) 5b. Right Arm: Motor (10-second hold) - 2(Drift, some effort against gravity) 6a. Left Leg: Motor (5-second hold - always test supine) - 3(No effort against gravity) 6b. Right Leg: Motor (5-second hold - always test supine) - 3(No effort against gravity) 7. Limb Ataxia (finger/nose \T\ heel/duarte - test with eyes open) - 2(Present in two limbs) 8. Sensory Loss (pinprick arms/legs/face) - 0(Normal) 9. Best Language: Aphasia (description/naming/reading) - 1(Mild to moderate aphasia) 10. Dysarthria (speech clarity - read or repeat words) - 1(Mild to Moderate) 11. Extinction and Inattention (visual/tactile/auditory/spatial/personal) - 1(Present) Initials: tw5 Signatures: Dispatcher [employer] EDGio Starks MD MD kdr Attema, Lee, MULT AU MATIC OPERATOR-C MULT AU MATIC OPERATOR-Cla1 Christopher Marsh RN RN jd3 Michael Rausch MD MD ps1 Tu Campbell, JOSUÉ wg Conchita dAler 5 Corrections: (The following items were deleted from the chart) 18:56 18:47 Urine Culture ordered. EDMS EDMS 21: 20:50 CORONAVIRUS+MR.DIO.BRZ ordered. EDMS EDMS 21:53 21:09 Chaparro ps1
--- NOTE | 2021-06-28 21:10 | ER ---
Nurse's Notes [facility] Name: Jemal Velez Age: 71 yrs Sex: Female : 1950 Arrival Date: 06/28/2021 Time: 15:52 Bed 6 Private MD: Diagnosis: Stroke. Presentation: 06/28 16:00 Chief complaint: EMS states: "pt was in the process of getting her blood drawn at her [facility] doctor's office and when she all of a sudden could not see out of both eyes. she reported being able to see shapes, but was unable to count how many fingers I was holding up. pt did get was hypertensive and got diaphoretic and was getting nauseous. 1 L bolus was given as well as 4 mg of Zofran. BGL was 132.". Coronavirus screen: Vaccine status: Patient reports receiving the 2nd dose of the covid vaccine. Date February 2021 At this time, the client does not indicate any symptoms associated with coronavirus-19. Ebola Screen: Patient negative for fever greater than or equal to 101.5 degrees Fahrenheit, and additional compatible Ebola Virus Disease symptoms. Initial Sepsis Screen: Does the patient meet any 2 criteria? No. Patient's initial sepsis screen is negative. Does the patient have a suspected source of infection? No. Patient's initial sepsis screen is negative. Risk Assessment: Do you want to hurt yourself or someone else? Patient reports no desire to harm self or others. Onset of symptoms was June 28, 2021. 16:00 Method Of Arrival: EMS: [facility] 16:00 Acuity: JEFF 2 [facility] 16:06 An acute neurological deficit is present. The charge nurse has been notified. The [facility] patient has been moved to a treatment area. The patients blood glucose was checked before arriving to the hospital and was found to be normal. Triage Assessment: 16:00 The onset of the patients symptoms was June 28, 2021 at 15:30. [facility] Stroke Activation: Symptom onset < 3 hours Physician: Stroke Attending; Name: ; Notified At: ; Arrived At: Physician: Chief Stroke Resident; Name: ; Notified At: ; Arrived At: Physician: Stroke Resident; Name: ; Notified At: ; Arrived At: Physician: ED Attending; Name: Jordon; Notified At: 16:00; Arrived At: 16:00 Physician: ED Resident; Name: ; Notified At: ; Arrived At: Historical: - Allergies: 16:06 Codeine; jd3 - Home Meds: 16:06 allopurinol 100 mg Oral tab 1 tab once daily [Active]; amlodipine 5 mg tab 1 tab once jd3 daily [Active]; rosuvastatin 10 mg Oral tab 1 tab once daily [Active]; spironolactone 25 mg Oral tab 2 tabs once daily [Active]; - PMHx: 16:06 Hypertension; shingles; jd3 - Immunization history:: Adult Immunizations unknown. - Social history:: Smoking status: unknown. Screenin:36 Abuse screen:. tw5 18:42 Nutritional screening: Difficulty chewing/swallowing? Yes. Tuberculosis screening: No tw5 symptoms or risk factors identified. Fall Risk IV access (20 points). Assessment: 16:16 VAN Scoring: Arm Drift: Severe drift The patient is alert, and able to follow commands. tw5 The patient does not exhibit slurred or garbled speech. 16:28 The patient is exhibiting difficulty speaking. The patient does not exhibit difficulty tw5 understanding words. The patient is unable to swallow own secretions without drooling or the need for suction. Bedside swallow screening discontinued. Patient kept NPO until cleared by Speech Therapy or Physician. The patient failed the bedside swallow screening. The patient will be kept NPO until cleared by Speech Therapy or Physician. Provider notified of bedside swallow screening results: Gio Ruvalcaba MD. T-PA (Activase) Screening: Indications: Definite evidence of stroke, ischemic, embolic, or hypertensive: Yes. Treatment will start within 4.5 hours onset of symptoms: Yes. No evidence of intracranial hemorrhage or CT of head and no evidence of peripheral hemorrhage or recent CVA: Yes. Consent for thrombolytic therapy: Yes. 17:21 Pain: Noted to be grimacing, guarding, moaning. Neuro: Oriented to. tw5 17:36 General: Appears Behavior is listless. General: daughter called ( yumiko) her number tw5 is [phone]. she stated that her mother usually talkative and can get around the house with a cane. Neuro: Level of Consciousness is lethargic, listless. Cardiovascular: Capillary refill < 3 seconds is brisk Pulses are all present. are 2+ in right radial artery and left radial artery. GI: Pt is actively vomiting. 17:46 General: RT at the bedside. . tw5 18:42 General: Behavior is agitated, listless, uncooperative. Neuro: Level of Consciousness tw5 is confused. 18:45 General:. tw5 20:01 General: Appears obese, well developed, Behavior is agitated, uncooperative. Neuro: wg Level of Consciousness is Pt follows some commands, director clinical research, plantar/dorsiflexion, opens eyes partially, sticks out tongue, but unable to speak or follow finger with eyes. Pupil equal and reactive to light. . [employer] are equal bilaterally Moves all extremities. Pupils are PERRLA. Cardiovascular: No deficits noted. Rhythm is sinus rhythm. Respiratory: No deficits noted. Airway is patent Trachea midline Respiratory effort is even, unlabored, Respiratory pattern is regular, symmetrical, Breath sounds are clear bilaterally. 20:50 Reassessment: No changes from previously documented assessment. wg 21:30 Reassessment: No changes from previously documented assessment. Remains verbally wg responsive. Moving all extremities, follows some commands. Family at bedside. Pt to be flown to [facility]. Report called to JOSUÉ Hale. 21:51 Reassessment: Report given to Flight RN/Staffing Associate at bedside. Pt's condition remained wg unchanged. Vital Signs: 16:07 Weight 107.5 kg (R); Height 5 ft. 3 in. (160.02 cm) (R); Pain 0/10; jd3 17:46 BP 164 / 84; Pulse 88; Resp 18; Temp 97.7; Pulse Ox 100% on R/A; tw5 18:45 BP 142 / 72; Pulse 89; Resp 18; Pulse Ox 99% on R/A; tw5 20:00 BP 154 / 57; Pulse 82; Resp 20; Pulse Ox 99% on R/A; Pain 0/10; wg 20:50 BP 137 / 72; Pulse 84; Resp 18; Pulse Ox 99% on R/A; wg 21:20 BP 120 / 96; Pulse 84; Resp 18; Pulse Ox 98% on R/A; wg 16:07 Body Mass Index 41.98 (107.50 kg, 160.02 cm) jd3 20:00 Perry-Snow (FACES) NIH Stroke Scale Scores: 16:16 NIHSS Score: 17 tw5 ED Course: 15:52 Patient arrived in ED. eb 15:52 Conchita Adler is Primary Nurse. tw5 15:[address] tw5 16:06 Triage completed. jd3 16:07 Arm band placed on. jd3 16:16 Conchita Adler is Primary Nurse. tw5 16:16 CT Stroke Brain w/o Contrast In Process Unspecified. EDMS 16:17 Gio Ruvalcaba MD is Attending Physician. kdr 16:23 EKG done, by ED staff, reviewed by Gio Ruvalcaba MD. eb 16:57 Stroke CXR 1 View In Process Unspecified. EDMS 16:58 CT Chest Abdomen Pelvis W/O Contrast In Process Unspecified. EDMS 17:00 NGT: inserted 16 Fr. via left nare. verified placement of air over stomach, verified tw5 return of gastric contents, to intermittent suction. Returned gastric contents. Patient tolerated well. 17:36 Patient has correct armband on for positive identification. manager monitoring on. Pulse tw5 ox on. NIBP on. Door closed. Noise minimized. Lights dimmed. Moved to private room. Warm blanket given. Verbal reassurance given. 18:30 Almendarez cath inserted, using sterile technique, 12 Fr., by sd, balloon inflated, to tw5 gravity drainage, urine specimen collected. 18:45 Initial lab(s) drawn, by school laboratory technician, Urine collected: Almendarez catheter specimen, clear. tw5 18:47 AMMONIA Sent. tw5 18:47 UDS Sent. tw5 18:52 Appears restless. Awaiting lab results. tw5 18:52 Patient maintains SpO2 saturation greater than 95% on room air. tw5 19:28 CT Head Angio Sent. wg 19:28 CT Neck Angio Sent. wg 19:33 CT Head Angio In Process Unspecified. EDMS 19:33 CT Neck Angio In Process Unspecified. EDMS 19:56 Glucose, Ancillary Testing Sent. wg 20:17 Attending Physician role handed off by Gio Ruvalcaba MD ps1 20:17 Michael Rausch MD is Attending Physician. ps1 20:45 KENDRA Kaufman, Hospitalist, initiated transfer at [facility] with Nehal Weber RN. tt3 Information was passed on by Floridalma De La Fuente RN, Charge Nurse. 21:52 Report given to JOSUÉ Hale at [facility]. wg 21:52 Patient transferred, IV remains in place. Administered Medications: 16:34 Drug: Zofran (Ondansetron) 4 mg Route: IVP; Site: left antecubital; tw5 17:20 Follow up: Response: No adverse reaction tw5 16:46 Drug: morphine 4 mg Route: IVP; Site: left antecubital; tw5 17:40 Follow up: Response: RASS: Light sedation (-2) tw5 19:24 Drug: NARcan (naloxone) 0.2 mg Route: IVP; Infused Over: 2 mins; Site: left antecubital; 21:50 Follow up: Response: No adverse reaction Point of Care Testing: Blood Glucose: 16:12 Blood Glucose: 157 mg/dL; jd3 Ranges: Outcome: 21:09 ER care complete, transfer ordered by . [facility] 21:50 Transferred by helicopter to [facility], Transfer form completed. wg X-rays sent w/ patient. 21:53 Patient left the ED. NIH Stroke Scale - NIH Stroke Score Date: 06/28/2021 Time: 16:16 Total Score = 17 1a. Level of Consciousness (LOC) - 0(Alert) 1b. Level of Consciousness (LOC) (Month \\T\\ Age) - 0(Both) 1c. LOC Commands (Open \\T\\ Closes Eyes/Senior Chemical Engineer) - 0(Both) 2. Best Gaze (Lateral Gaze Paresis) - 0(Normal) 3. Visual Field Loss - 1(Partial hemianopia) 4. Facial Palsy - 1(Minor Paralysis) 5a. Left Arm: Motor (10-second hold) - 2(Drift, some effort against gravity) 5b. Right Arm: Motor (10-second hold) - 2(Drift, some effort against gravity) 6a. Left Leg: Motor (5-second hold - always test supine) - 3(No effort against gravity) 6b. Right Leg: Motor (5-second hold - always test supine) - 3(No effort against gravity) 7. Limb Ataxia (finger/nose \\T\\ heel/duarte - test with eyes open) - 2(Present in two limbs) 8. Sensory Loss (pinprick arms/legs/face) - 0(Normal) 9. Best Language: Aphasia (description/naming/reading) - 1(Mild to moderate aphasia) 10. Dysarthria (speech clarity - read or repeat words) - 1(Mild to Moderate) 11. Extinction and Inattention (visual/tactile/auditory/spatial/personal) - 1(Present) Initials: tw5 Signatures: Dispatcher [employer] EDMS Gio Ruvalcaba MD MD kdr Davies, Jonathon RN RN jd3 Michael Rausch MD MD ps1 Botello, Elizabeth eb Trim, Tyler tt3 Tu Campbell RN wg Wood, Tiffany tw5 Corrections: (The following items were deleted from the chart) 18:54 17:46 Conchita Adler is Primary Nurse. tw5 tw 18:56 18:56 Urine Culture drawn and sent. 5 EDTN
[2021-06-28 22:04] VITALS: TEMP 97.7
[2021-06-28 22:09] VITALS: BP 120/96; O2SAT 98
--- NOTE | 2021-07-01 09:03 | EKG ---
Test Date: 2021-06-28 Test Time: 16:12:47 Otolaryngology Nurse: TIFFANIE MEASUREMENT RESULTS: Intervals: Rate: 79 MO: 140 QRSD: 114 QT: 436 QTc: 499 [place]: P: 40 MO: 140 QRS: -2 T: 186 INTERPRETIVE STATEMENTS: Normal sinus rhythm Left ventricular hypertrophy with repolarization abnormality Inferior infarct, age undetermined Anterolateral infarct, age undetermined Abnormal ECG Compared to ECG 11/15/2020 13:57:30 Myocardial infarct finding now present Sinus bradycardia no longer present Short MO interval no longer present Electronically Signed On 07-01-21 08:57:56 CDT by Prashant Moffett
== END 2021-06-28 21:53 | disposition short-term general hospital (02) ==
LOC: ER 15:46
DX: I63.9 Cerebral infarction, unspecified (principal); I10 Essential (primary) hypertension; R29.717 NIHSS score 17; Z20.822 Contact with and (suspected) exposure to COVID-19
CPT/HCPCS: 93005; 85025; 80048; 36415; 82140; 85610; 82947; 85730; 80307; 71250; 70496; 70498; 74176; 70450; 71045; 82805; 51702; 96375; 96374; 99291; 99292; U0003; Q9967; J2310; J2270 ×2; J2405; J2550